=== PATIENT | male | born 1955 | race Caucasian/White ===

== ENCOUNTER 2020-03-05 15:00 | Emergency (ER) | payer OTHER ==
[~2020-03-05] VITALS: Ht 160 cm; Wt 77.1 kg
[2020-03-05 15:03] VITALS: Ht 160 cm; Wt 77.1 kg
[2020-03-05 16:07] VITALS: BP 163/100
== END 2020-03-05 16:07 | disposition home or self-care (01) ==
LOC: ED 15:00
DX: S01.01XA Laceration without foreign body of scalp, initial encounter (principal); I10 Essential (primary) hypertension; W20.8XXA Other cause of strike by thrown, projected or falling object, initial encounter; Y93.01 Activity, walking, marching and hiking; Y92.89 Other specified places as the place of occurrence of the external cause; Y99.8 Other external cause status
CPT/HCPCS: 90715

== ENCOUNTER 2020-03-07 15:40 | Emergency (ER) | payer OTHER ==
[~2020-03-07] VITALS: Ht 162.6 cm; Wt 81.2 kg
[2020-03-07 15:58] VITALS: BP 138/58; Ht 162.6 cm; Wt 81.2 kg
== END 2020-03-07 16:18 | disposition home or self-care (01) ==
LOC: ED 15:40
DX: S01.01XD Laceration without foreign body of scalp, subsequent encounter (principal); I10 Essential (primary) hypertension; X58.XXXD Exposure to other specified factors, subsequent encounter